=== PATIENT | female | born 1970 | race American Indian/Alaskan Native ===

== ENCOUNTER 2016-09-22 13:52 | Emergency (ER) | payer MEDICARE ==
[2016-09-22 14:29] VITALS: BP 132/83
[2016-09-22 14:53] LABS: Hematocrit 36.5 % (30.3-42.9); Hemoglobin 11.7 gm/dl (10.1-14.3); Mean Corpuscular HGB Conc 32 % (30-34); Mean Corpuscular Hemoglobin 32 pg (28-32); Mean Corpuscular Volume 100 fl (79-97); Platelet Count 287 K/mm3 (140-440); Red Blood Count 3.65 M/mm3 (3.65-5.03); Red Cell Distribution Width 14.4 % (13.2-15.2); White Blood Count 5.5 K/mm3 (4.5-11.0)
[2016-09-22 15:30] LABS: BUN/Creatinine Ratio 19.23; Blood Urea Nitrogen 25 mg/dL (7-17); Calcium 8.9 mg/dL (8.4-10.2); Carbon Dioxide 15 mmol/L (22-30); Chloride 109.1 mmol/L (98-107); Glucose 92 mg/dL (65-100); Sodium 140 mmol/L (137-145)
[2016-09-22 15:41] LABS: Blastocytes % (Manual) 0 %; Eosinophils % (Manual) 0 % (0.0-4.3)
[2016-09-22 15:42] LABS: Diff Status Complete; Platelet Estimate Consistent w Auto; RBC Morphology Normal
[2016-09-22 15:44] LABS: Anion Gap 20 mmol/L; Potassium 4.3 mmol/L (3.6-5.0)
== END 2016-09-22 20:15 | disposition left against medical advice (07) ==
LOC: ED 13:52
DX: R07.89 Other chest pain (principal); Z53.21 Procedure and treatment not carried out due to patient leaving prior to being seen by health care provider
CPT/HCPCS: 36415; 80048; 84484; 85007; 85025; 93005; 93010